=== PATIENT | female | born 1945 | race Caucasian/White ===

== ENCOUNTER 2020-08-21 14:39 | Outpatient (CLI) | payer MEDICARE, SELFPAY ==
--- NOTE | ~2020-08-21 | MM_ITS ---
EXAMINATION: MM screening ava BI w haylie HISTORY: Screening mammogram TECHNIQUE: Craniocaudal and mediolateral oblique 3-D tomosynthesis images were obtained and synthetic 2-D images were generated. CAD analysis was submitted and interpreted. COMPARISON: 08/08/2019, 08/02/2018, 07/31/2017 bilateral digital screening mammogram examinations BREAST PARENCHYMAL COMPOSITION: There are scattered areas of fibroglandular density. FINDINGS: Stable mild fibroglandular asymmetry. There is no evidence of suspicious mass, calcificatio n, or architectural distortion to suggest malignancy in either breast. There has been no suspicious i nterval change. IMPRESSION: 1. No mammographic evidence of malignancy. 2. Recommend routine screening mammography in one year. BI-RADS Category 2: Benign finding(s). Reviewed, dictated and finalized at location A. 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
== END 2020-08-21 14:40 | disposition home or self-care (01) ==
LOC: ANHIMG 14:42
PROVIDERS: PCP Family Medicine; Visit Provider Family Medicine
DX: Z12.31 Encounter for screening mammogram for malignant neoplasm of breast (principal)
CPT/HCPCS: 77063; 77067

== ENCOUNTER → 2021-02-04 12:29 | Outpatient (CLI) | payer MEDICARE, SELFPAY ==
--- NOTE | ~2021-02-04 | MR_ITS ---
EXAMINATION: MR lumbar spine wo con EXAM DATE: 02/04/2021 13:38 INDICATION: M47.816 - Spondylosis without myelopathy or radiculopathy. Low back pain and right leg pa in. TECHNIQUE: Multi-sequential, multiplanar MR images of the lumbar spine were obtained without contrast . Sagittal T1, T2, T2 fat saturation images. Axial T2 weighted images. Correlation is made to lumba r x-ray 04/09/2018. FINDINGS: Incidental approximately 2.3 cm left adrenal mass. No prior CT scans for comparison. There are mild acute or subacute compression fractures of L5 and S1 (edema present). There is a 2 mm alessia listhesis L5 on S1, without definite pars defects identified. Moderate to severe disc disease at this level, moderate at the 2 levels above. The conus medullaris terminates at the L1/2 level and has nor mal signal intensity and morphology. Level by level evaluation: T12-L1: Disc does not extend beyond the endplate margin. Facet arthropathy: None. Neural foraminal stenosis: No stenosis. Central canal stenosis: No stenosis. L1-L2: Disc does not extend beyond the endplate margin. Facet arthropathy: Mild. Neural foraminal stenosis: No stenosis. Central canal stenosis: No stenosis. L2-L3: There is a mild diffuse disc bulge. Facet arthropathy: Mild. Neural foraminal stenosis: No stenosis. Central canal stenosis: No stenosis. L3-L4: There is a mild to moderate diffuse disc bulge. Facet arthropathy: Mild to moderate. Neural foraminal stenosis: Mild bilateral. Central canal stenosis: Mild. L4-L5: There is a mild to moderate diffuse disc bulge. Facet arthropathy: Moderate. Neural foraminal stenosis: Mild to moderate right, mild left. Central canal stenosis: Mild. L5-S1: There is a moderate diffuse disc bulge. Facet arthropathy: Severe. Neural foraminal stenosis: Moderate to severe left, moderate right. Central canal stenosis: Mild to moderate. IMPRESSION: 1. L5 and S1 mild acute or subacute compression fractures. 2. Grade 2 anterolisthesis L5 on S1 with moderate to severe left, moderate right neural foraminal st enosis. 3. Less spondylosis other levels. 4. Left adrenal mass statistically most likely adenoma. Recommend noncontrast CT abdomen, might be e nough to determine benign histology. Reviewed, dictated and finalized at location A. IMPRESSION: 1. L5 and S1 mild acute or subacute compression fractures. 2. Grade 2 anterolisthesis L5 on S1 with moderate to severe left, moderate rig ht neural foraminal stenosis. 3. Less spondylosis other levels. 4. Left adrenal mass statistically most likely adenoma. Recommend noncontrast CT abdomen, might be enough to determine benign histology.
== END ==
PROVIDERS: PCP Family Medicine; Visit Provider Family Medicine
DX: M47.817 Spondylosis without myelopathy or radiculopathy, lumbosacral region (principal); M48.07 Spinal stenosis, lumbosacral region
CPT/HCPCS: 72148

== ENCOUNTER 2021-10-27 14:03 | Outpatient (CLI) | payer MEDICARE, SELFPAY ==
--- NOTE | ~2021-10-27 | MM_ITS ---
EXAMINATION: MM screening [facility] BI w haylie HISTORY: Screening mammogram, family history of breast cancer in her mother and sister. TECHNIQUE: Craniocaudal and mediolateral oblique 3-D tomosynthesis images were obtained and synthetic 2-D images were generated. CAD analysis was submitted and interpreted. COMPARISON: 08/21/2020, 08/08/2019, 08/02/2018 BREAST PARENCHYMAL COMPOSITION: There are scattered areas of fibroglandular density. FINDINGS: Focal asymmetry in the subareolar left breast is stable, consistent with a benign finding. There is no evidence of suspicious mass, calcification, or architectural distortion to suggest malign keon in either breast. There has been no suspicious interval change. IMPRESSION: 1. No mammographic evidence of malignancy. 2. Recommend routine screening mammography in one year. BI-RADS Category 2: Benign finding(s). Reviewed, dictated and finalized at location A. 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
== END 2021-10-27 14:04 | disposition home or self-care (01) ==
LOC: ANHIMG 14:07
PROVIDERS: PCP Family Medicine; Visit Provider Obstetrics & Gynecology
DX: Z12.31 Encounter for screening mammogram for malignant neoplasm of breast (principal)
CPT/HCPCS: 77063; 77067

== ENCOUNTER 2022-02-23 08:10 | Outpatient (CLI) | payer MEDICARE, SELFPAY ==
--- NOTE | ~2022-02-23 | DEXA_ITS ---
Bone Density Report Name: SPENCER ELLIOTT Age: 76 Sex: Female Ethnicity: White Date of : 1945 Indication: postmenopausal; screening for osteoporosis; height loss; prior fracture; cancer; hysterectomy; Referring Provider: WAYNE TINAJERO Study: Bone densitometry was performed. Exam Date: February 23, 2022 Accession number: [id number] Bone Density: Region BMD T-score Z-score Classification AP Spine(L1, L2, L3) 0.947 -0.6 1.8 Normal Femoral Neck (Left) 0.677 -1.5 0.6 Osteopenia Total Hip (Left) 0.901 -0.3 1.6 Normal Femoral Neck (Right) 0.701 -1.3 0.9 Osteopenia Total Hip (Right) 0.910 -0.3 1.7 Normal Total Hip Mean 0.905 -0.3 1.7 Normal World Health Organization criteria for BMD impression classify patients as: Normal (T-score at or above -1.0), Osteopenia (T-score between -1.0 and -2.5), or Osteoporosis (T-score at or below -2.5). 10-year Fracture Risk(1): Major Osteoporotic Fracture 18% Hip Fracture 3.4% Reported Risk Factors: [place] (), Neck BMD=0.677, BMI=33.1, previous fracture (1) FRAX(R) Version 3.08. Fracture probability calculated for an untreated patient. Fracture probability may be lower if the patient has received treatment. Clinical Information Provided by Patient: Has had a low trauma fracture Has used the following medications: Vitamin D, Calcium Has the following medical conditions: Cancer, Hysterectomy Patient maximum height was 64 Menopause Age: 44 No regular weight bearing exercise Does not regularly consume dairy products Drinks caffeinated beverages Onset of menses at age 13 Number of children 3 Impression: The patient has low bone mass, based on the Left Femoral Neck T-score. The patient has an estimated ten-year risk of hip fracture of 3.4% and an estimated ten-year risk of major fracture of 18%, based on the WHO FRAX algorithm. The patient has risk factors, including: previous fracture. Discussion: BONE DENSITY IS LOW AT ONE OR MORE SKELETAL SITES. THE PATIENT'S BMD AND CLINICAL RISK FACTORS CONTRIBUTE TO THIS PATIENT'S INCREASED RISK OF FRACTURE. This patient's lowest T-score is low at one or more skeletal sites. It meets the World Health Organization's (WHO) criteria for ?low bone mass? (T-score between -1.0 and -2.5). The patient's 10-year risk of hip fracture as calculated by FRAX exceeds the threshold where pharmacological therapy is recommended by the National Osteoporosis Foundation (NOF). However, all treatment decisions require clinical judgment and consideration of individual patient factors, including patient preferences, comorbidities, previous drug use, risk factors not captured in the FRAX model (e.g., frailty, falls, vitamin D deficiency, increased bone turnover, interval significant decline in bone density) and possible under
== END 2022-02-23 08:11 | disposition home or self-care (01) ==
LOC: ANHIMG 08:17
PROVIDERS: PCP Family Medicine; Visit Provider Family Medicine
DX: Z78.0 Asymptomatic menopausal state (principal); M85.852 Other specified disorders of bone density and structure, left thigh; M85.851 Other specified disorders of bone density and structure, right thigh
CPT/HCPCS: 77080

== ENCOUNTER 2022-03-07 02:01 | Day surgery (SDC) | payer MEDICARE, SELFPAY ==
[2022-02-17 12:20] VITALS: BMI 32.5
--- NOTE | 2022-03-04 14:42 | PM.HPGS ---
History of Present Illness History of Present Illness Consent: Risks, benefits, and alternatives have been discussed and questions answered. Patient agrees to proceed with procedure. Chief complaint: hx of colon polyps Narrative: Berna Vicente is a 76 year old female was referred for colon cancer screening. She had a polyp removed about 7 years ago. Review of Systems Review of Systems: All systems reviewed & are unremarkable except as noted in HPI and below PMFSH Past Medical History Medical History Appendicitis BP (high blood pressure) BPV (benign positional vertigo) Chronic insomnia Mixed hyperlipidemia Surgical History Surgical History Hx of hysterectomy S/P appendectomy Family History Family History Mother Family history of malignant neoplasm of breast in first degree relative Social History Social History Social History: Smoking packs per day: 0.25 Smoking cigarettes per day: 5.0 Years smoked: 15 Smoking pack-years: 3.75 Smoking status: Former smoker Tobacco type: cigarettes Second hand tobacco smoke exposure: No Alcohol intake: never Alcohol use details: occasionally Substance use: never Substance use type: does not use Living arrangements: with family Gender identity (if verbalized by the patient): Female Sexual Orientation (if Verbalized by the Patient): Straight or Heterosexual Spiritual care concerns: No Meds Home Medications and Allergies Home Medications Medication Instructions Recorded Confirmed Type amlodipine 5 mg tablet See Rx Instructions .Route 01/14/22 02/28/22 Rx .COMPLEX #90 tabs azelastine 137 mcg (0.1 %) nasal 1 spray intranasal Q12H #30 mL 02/04/22 02/28/22 Rx spray aerosol calcitonin (salmon) 200 1 spray intranasal (ALT) DAILY 02/11/22 02/17/22 Rx unit/actuation nasal spray #3.7 mL celecoxib 200 mg capsule (Celebrex) 200 mg PO BID #60 caps 02/11/22 02/17/22 Rx omeprazole 20 mg capsule,delayed 20 mg PO DAILY 02/11/22 02/17/22 History release gabapentin 100 mg capsule 100 mg PO QPM 02/17/22 02/28/22 History lisinopril 20 1 tablet PO DAILY #90 tabs 03/04/22 03/07/22 Rx mg-hydrochlorothiazide 12.5 mg tablet ezetimibe 10 mg tablet 10 mg PO DAILY #30 tabs 03/06/22 03/07/22 Rx Allergies Allergy/AdvReac Type Severity Reaction Status Date / Time shellfish derived Allergy Severe HIVES Verified 03/07/22 10:05 iodine Allergy Unknown Hives Verified 03/07/22 10:05 Exam Resp: Auscultation: clear to auscultation bilaterally Cardio: Rate: regular rate Rhythm: regular rhythm GI: GI Palp: Yes Soft to palpation and No Tenderness to palpation present (GI) Assessment and Plan Assessment and plan (1) Colon cancer screening: Code(s): Z12.11 - Encounter for screening for malignant neoplasm of colon Status: Acute Assessment and Plan: Colonoscopy with possible biopsy or polypectomy or cautery or injection of substances.
--- NOTE | 2022-03-07 07:28 | WPDANESEPPF ---
Anes - Initial Pre Proc Eval Procedure: Operation Date: 03/07/22 10:15 Proposed Procedures p Screening Colonoscopy - Jalen Doss MD Date/Time: 03/07/22 07:28 Surgeon: Jalen Doss MD Pre Op Diagnosis: hx of colon polyps Patient Data Age: 76 Gender: F Height: 1.63 m Weight: 86 kg Allergies Allergy/AdvReac Type Severity Reaction Status Date / Time shellfish derived Allergy Severe HIVES Verified 03/07/22 10:05 iodine Allergy Unknown Hives Verified 03/07/22 10:05 Home Medications Medication Instructions Recorded Confirmed Type amlodipine 5 mg tablet See Rx Instructions .Route 01/14/22 02/28/22 Rx .COMPLEX #90 tabs azelastine 137 mcg (0.1 %) nasal 1 spray intranasal Q12H #30 mL 02/04/22 02/28/22 Rx spray aerosol calcitonin (salmon) 200 1 spray intranasal (ALT) DAILY 02/11/22 02/17/22 Rx unit/actuation nasal spray #3.7 mL celecoxib 200 mg capsule (Celebrex) 200 mg PO BID #60 caps 02/11/22 02/17/22 Rx omeprazole 20 mg capsule,delayed 20 mg PO DAILY 02/11/22 02/17/22 History release gabapentin 100 mg capsule 100 mg PO QPM 02/17/22 02/28/22 History lisinopril 20 1 tablet PO DAILY #90 tabs 03/04/22 03/07/22 Rx mg-hydrochlorothiazide 12.5 mg tablet ezetimibe 10 mg tablet 10 mg PO DAILY #30 tabs 03/06/22 03/07/22 Rx Patient hx anesthesia problems: none Family hx anesthesia problems: none Results Review: All pre-operative results and documents have been reviewed as part of the pre-operative evaluation. [facility] Past Medical History Medical History Appendicitis BP (high blood pressure) BPV (benign positional vertigo) Chronic insomnia Mixed hyperlipidemia Surgical History Surgical History Hx of hysterectomy S/P appendectomy Family History Family History Mother Family history of malignant neoplasm of breast in first degree relative Social History Social History (Updated 02/11/22 @ 08:34 by Melissa Anderson) Social History: Smoking packs per day: 0.25 Smoking cigarettes per day: 5.0 Years smoked: 15 Smoking pack-years: 3.75 Smoking status: Former smoker Tobacco type: cigarettes Second hand tobacco smoke exposure: No Alcohol intake: never Alcohol use details: occasionally Substance use: never Substance use type: does not use Living arrangements: with family Gender identity (if verbalized by the patient): Female Sexual Orientation (if Verbalized by the Patient): Straight or Heterosexual Spiritual care concerns: No Anes - Eval Final PreProcedure Day of Procedure 03/07/22 07:28 Patient weight: obese Heart: regular rate and rhythm Lungs: clear to auscultation Airway: Mallampati scale class II Neurological: alert and oriented Last oral intake: >/= 8 hours ASA classification: III Emergent: no Anesthetic plan: proceed Anesthesia type and monitoring: general GIVS and standard monitoring Results Review: All pre-operative results and documents have been reviewed as part of the pre-operative evaluation. Informed Consent: The patient's anesthetic plan and its attendant risks and benefits were discussed with the patient/family/POA. Questions were solicited and answers provided to the satisfaction of the patient/family/POA.
[2022-03-07 10:07] VITALS: BP 171/88; PULSE 90; RESP 20; TEMP 36; O2SAT 100
[2022-03-07] MEDS: LACTATED RINGERS 1,000 ML 150 ML IV CONT (10:11)
[2022-03-07 11:10] VITALS: BP 106/53; PULSE 74; RESP 22; O2SAT 99
[2022-03-07 11:20] VITALS: BP 112/63; PULSE 71; RESP 20; O2SAT 99
[2022-03-07 11:30] VITALS: BP 132/77; PULSE 68; RESP 15; O2SAT 98
== END 2022-03-07 11:33 | disposition home or self-care (01) ==
PROVIDERS: PCP Family Medicine; Visit Provider Internal Medicine Gastroenterology
PROC: 0DJD8ZZ Inspection of Lower Intestinal Tract, Via Natural or Artificial Opening Endoscopic (ICD-10-PCS; CPT 45378; principal; 2022-03-07 10:15)
DX: Z12.11 Encounter for screening for malignant neoplasm of colon (principal); Z86.010 Personal history of colon polyps; K64.8 Other hemorrhoids; H81.10 Benign paroxysmal vertigo, unspecified ear; E78.2 Mixed hyperlipidemia; F51.04 Psychophysiologic insomnia; I10 Essential (primary) hypertension; Z87.891 Personal history of nicotine dependence; E66.9 Obesity, unspecified; Z68.31 Body mass index [BMI] 31.0-31.9, adult
CPT/HCPCS: G0105; J2704; J7120

== ENCOUNTER 2022-08-10 08:32 | Outpatient (CLI) | payer MEDICARE, SELFPAY | END 2022-08-10 08:33 | disposition home or self-care (01) | LOC: ANHAUDIO 08:32 | PROVIDERS: PCP Family Medicine; Visit Provider Otolaryngology | DX: H93.13 Tinnitus, bilateral (principal) | CPT/HCPCS: 92557; 92567 ==

== ENCOUNTER 2022-09-22 11:53 | Outpatient (CLI) | payer MEDICARE, SELFPAY ==
--- NOTE | ~2022-09-22 | MMUS_ITS ---
EXAMINATION: MM diagnostic ava LT w haylie, US axilla LT HISTORY: Palpable lump in the upper outer quadrant of the left breast TECHNIQUE: Craniocaudal, mediolateral, and mediolateral oblique 3-D tomosynthesis images of the left breast were performed and synthetic 2-D images were generated. CAD analysis was submitted and interpr eted. High resolution limited left breast ultrasound was performed. COMPARISON: 10/27/2021, 08/21/2020, 08/08/2019 BREAST PARENCHYMAL COMPOSITION: There are scattered areas of fibroglandular density. FINDINGS: MAMMOGRAPHIC FINDINGS: No suspicious mass, calcification, or architectural distortion are identified to suggest malignancy. There has been no suspicious interval change. No mammographic correlate is identified for the reporte d palpable abnormality of concern. ULTRASOUND: There is no evidence of focal abnormal solid or cystic mass in the vicinity of the reported palpable abnormality of concern. IMPRESSION: 1. No specific mammographic or sonographic correlate is identified for the reported palpable abnormal ity of concern. Further evaluation at this time should be based on clinical assessment. Continued fol low-up physical examination is recommended. 2. Recommend routine screening mammography in one year. BI-RADS Category 1: Negative Reviewed, dictated and finalized at location A. 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 No specific mammographic or sonographic correlate is identified for the repo rted palpable abnormality of concern. Further evaluation at this time should be based on clinical assessment. Continued follow-up physical examination is ange mmended. 2. Recommend routine screening mammography in one year. BI-RADS Category 1: Negative
== END 2022-09-22 11:54 | disposition home or self-care (01) ==
PROVIDERS: PCP Family Medicine; Visit Provider Nurse Practitioner Gerontology
DX: R22.32 Localized swelling, mass and lump, left upper limb (principal); Z80.3 Family history of malignant neoplasm of breast; N63.21 Unspecified lump in the left breast, upper outer quadrant
CPT/HCPCS: 76882; 77061; 77065; G0279

== ENCOUNTER 2022-12-14 14:50 | Outpatient (CLI) | payer MEDICARE, SELFPAY ==
--- NOTE | ~2022-12-14 | MM_ITS ---
EXAMINATION: MM screening [facility] BI w haylie HISTORY: Screening TECHNIQUE: Craniocaudal and mediolateral oblique 3-D tomosynthesis images were obtained and synthetic 2-D images were generated. CAD analysis was submitted and interpreted. COMPARISON: Comparison to multiple prior studies sequentially, with oldest reviewed study dated 07/19. BREAST PARENCHYMAL COMPOSITION: There are scattered areas of fibroglandular density. FINDINGS: There is no evidence of suspicious mass, calcification, or architectural distortion to sugg est malignancy in either breast. There has been no suspicious interval change. IMPRESSION: 1. No mammographic evidence of malignancy. 2. Recommend routine screening mammography in one year. BI-RADS Category 1: Negative Reviewed, dictated and finalized at location A.
== END 2022-12-14 14:51 | disposition home or self-care (01) ==
LOC: ANHIMG 14:53
PROVIDERS: PCP Family Medicine; Visit Provider Obstetrics & Gynecology
DX: Z12.31 Encounter for screening mammogram for malignant neoplasm of breast (principal)
CPT/HCPCS: 77063; 77067

== ENCOUNTER 2023-01-18 13:25 | Outpatient (CLI) | payer MEDICARE, SELFPAY ==
--- NOTE | ~2023-01-18 | CT_ITS ---
EXAMINATION: CT sinus wo con DATE: 01/18/2023 13:50 INDICATION: Chronic sinusitis. TECHNIQUE: Computed tomography (CT) of the paranasal sinuses was performed without intravenous contra st. Iterative reconstruction technique was employed. The dose-length product was 277.13 mGy-cm. COMPARISON: None FINDINGS: The frontal sinuses are clear. There is mild mucosal thickening in the ethmoid sinuses. The sphenoid and maxillary sinuses are clear. There is mild mucosal thickening in right maxillary sinus. There is rightward deviation of the nasal septum. There is bo bullosa involving left middle turb inate. There are bilateral Jd cells. Right ostiomeatal unit is occluded at the hiatus semilunaris . Left ostiomeatal unit is patent. IMPRESSION: 1. Mild mucosal thickening in the paranasal sinuses with occlusion of right ostiomeatal unit. 2. Rightward deviation of the nasal septum. Reviewed, dictated and finalized at location A. IMPRESSION: 1. Mild mucosal thickening in the paranasal sinuses with occlusion of right ost iomeatal unit. 2. Rightward deviation of the nasal septum.
== END 2023-01-18 13:26 | disposition home or self-care (01) ==
PROVIDERS: PCP Family Medicine; Visit Provider Otolaryngology
DX: J32.9 Chronic sinusitis, unspecified (principal); J34.2 Deviated nasal septum
CPT/HCPCS: 70486

== ENCOUNTER 2023-06-01 10:51 | Emergency (ER) | payer MEDICARE, SELFPAY ==
[2023-06-01] VITALS (7 sets, daily range): BP systolic 133–165; BP diastolic 63–74; PULSE 70–93; RESP 11–18; TEMP 36.9; O2SAT 98–100
--- NOTE | ~2023-06-01 | XR_ITS ---
EXAMINATION: XR chest 1V portable 06/01/2023 11:18 INDICATION: Chest pain PROCEDURE: AP portable chest COMPARISON: No prior studies for comparison. FINDINGS: The lungs are clear. The cardiomediastinal silhouette is within normal limits. There are no pleural effusions. There is no pneumothorax suspected. IMPRESSION: 1: NO ACUTE CARDIOPULMONARY DISEASE. Reviewed, dictated and finalized at location L.
--- NOTE | 2023-06-01 10:56 | ECG_ITS ---
Measurements Intervals [place] Rate: 79 P: -1 [place]: 152 QRS: -11 QRSD: 84 T: 20 QT: 378 QTc: 434 Interpretive Statements SINUS RHYTHM DELAYED PRECORDIAL R/S TRANSITION VOLTAGE CRITERIA FOR LV BORDERLINE ECG NO PREVIOUS ECG AVAILABLE FOR COMPARISON Electronically Signed On 06-01-2023 11:49:59 CDT by Harsha Wong D.O.
[2023-06-01 11:42] LABS: Basophils Absolute Auto 0.1 K/mm3 (0.0-0.1); Basophils Percent Auto 0.7 % (0.2-1.2); Eosinophils Absolute Auto 0.2 K/mm3 (0-0.3); Eosinophils Percent Auto 3.1 % (0-4.4); Hemoglobin 13.4 g/dL (12.0-15.0); Immature Granulocyte Absolute 0.02 K/mm3 (0.00-0.031); Immature Granulocyte Percent A 0.3 % (0-0.5); Lymphocytes Absolute Auto 1.72 K/mm3 (0.9-3.2); Lymphocytes Percent Auto 24.3 % (18.3-44.2); Mean Corpuscular HGB Conc 31.9 g/dl (32-36); Mean Corpuscular Hemoglobin 32.4 pg (26-34); Mean Corpuscular Volume 101.7 fl (80-100); Monocytes Absolute Auto 0.6 K/mm3 (0.1-0.6); Monocytes Percent Auto 8.2 % (2.6-8.5); Neutrophils Absolute Auto 4.5 K/mm3 (1.3-6.7); Neutrophils Percent Auto 63.4 % (45.5-73.1); Platelet Count Result 300 k/mm3 (150-375); Red Blood Count 4.13 M/mm3 (4.2-5.4); Red Cell Distribution Width 12.6 % (11.5-14.5); White Blood Count 7.1 K/mm3 (4.5-10.0)
[2023-06-01 11:48] LABS: Alanine Aminotransferase 24 U/L (6-35); Alkaline Phosphatase 59 U/L (38-126); Anion Gap 11 mmol/L (8-16); Aspartate Amino Transferase 30 U/L (14-36); Bilirubin,Total 0.5 mg/dL (0.2-1.3); Blood Urea Nitrogen 20 mg/dL (7-17); Carbon Dioxide 27 mmol/L (22-30); Chloride 102 mmol/L (98-107); Estimated CRCL calculation 48 ml/min; Estimated Glomerular Filt Rate > 60; Glucose 129 mg/dL (65-110); Lipase 107 U/L (23-300); Potassium 3.8 mmol/L (3.4-5.0); Sodium 140 mmol/L (137-145)
[2023-06-01 11:49] LABS: INR 0.9; Partial Thromboplastin Time 29.5 SECONDS (22.3-36.8); Prothrombin Time 12.4 Seconds (11.1-14.7)
[2023-06-01 12:00] LABS: Troponin I < 0.012 ng/mL (0.000-0.034)
--- NOTE | 2023-06-01 12:24 | ED.GENADULT ---
HPI - General Adult General Chief complaint: Chest Pain Stated complaint: right side chest pain Time Seen by Provider: 06/01/23 11:47 History of Present Illness HPI narrative: Pt presents with right sided CP since last night. Pt says the pain has been constant. Related Data Home Medications Medication Instructions Recorded Confirmed omeprazole 20 mg capsule,delayed 20 mg PO DAILY 02/11/22 05/09/23 release Allergies Allergy/AdvReac Type Severity Reaction Status Date / Time shellfish derived Allergy Severe HIVES Verified 05/09/23 13:37 iodine Allergy Unknown Hives Verified 05/09/23 13:37 [facility] Past Medical History Medical History Appendicitis BP (high blood pressure) BPV (benign positional vertigo) Chronic insomnia Mixed hyperlipidemia Surgical History Surgical History Hx of hysterectomy S/P appendectomy Family History Family History Mother Family history of malignant neoplasm of breast in first degree relative Social History Social History Social History: Smoking packs per day: 0.25 Smoking cigarettes per day: 5.0 Years smoked: 15 Smoking pack-years: 3.75 Smoking status: Former smoker Tobacco type: cigarettes Second hand tobacco smoke exposure: No Alcohol intake: never Alcohol use details: occasionally Substance use: never Substance use type: does not use Living arrangements: with family Occupation/Education: retired Gender identity (if verbalized by the patient): Female Sexual Orientation (if Verbalized by the Patient): Straight or Heterosexual Spiritual care concerns: No Course Vital Signs Vital signs: Vital Signs Temperature 98.4 F 06/01/23 11:00 Pulse Rate 93 06/01/23 11:00 Respiratory Rate 16 06/01/23 11:00 Blood Pressure 165/69 H 06/01/23 11:00 Pulse Oximetry 100 06/01/23 11:00 Oxygen Delivery Room Air 06/01/23 11:00 Temperature 98.4 F 06/01/23 11:00 Pulse Rate 70 06/01/23 13:00 Respiratory Rate 16 06/01/23 13:00 Blood Pressure 133/63 06/01/23 13:00 Pulse Oximetry 100 06/01/23 13:00 Oxygen Delivery Room Air 06/01/23 11:00 Medical Decision Making Vital Signs Vital Signs: Vital Signs Temperature 98.4 F 06/01/23 11:00 Pulse Rate 93 06/01/23 11:00 Respiratory Rate 16 06/01/23 11:00 Blood Pressure 165/69 H 06/01/23 11:00 Pulse Oximetry 100 06/01/23 11:00 Oxygen Delivery Room Air 06/01/23 11:00 Temperature 98.4 F 06/01/23 11:00 Pulse Rate 70 06/01/23 13:00 Respiratory Rate 16 06/01/23 13:00 Blood Pressure 133/63 06/01/23 13:00 Pulse Oximetry 100 06/01/23 13:00 Oxygen Delivery Room Air 06/01/23 11:00 Lab Data 06/01/23 11:27 06/01/23 11:27 Labs: Lab Results 06/01/23 Range/Units 11:27 WBC 7.1 (4.5-10.0) K/mm3 RBC 4.13 L (4.2-5.4) M/mm3 Hgb 13.4 (12.0-15.0) g/dL Hct 42.0 (37.0-47.0) % MCV 101.7 H (80-100) fl MCH 32.4 (26-34) pg MCHC 31.9 L (32-36) g/dl RDW 12.6 (11.5-14.5) % Plt Count 300 (150-375) k/mm3 MPV 10.0 (7.4-10.4) fl Immature Gran % (Auto) 0.3 (0-0.5) % Neut % (Auto) 63.4 (45.5-73.1) % Lymph % (Auto) 24.3 (18.3-44.2) % [place] % (Auto) 8.2 (2.6-8.5) % Eos % (Auto) 3.1 (0-4.4) % Baso % (Auto) 0.7 (0.2-1.2) % Lymph # (Auto) 1.72 (0.9-3.2) K/mm3 [place] # (Auto) 0.6 (0.1-0.6) K/mm3 Eos # (Auto) 0.2 (0-0.3) K/mm3 Baso # (Auto) 0.1 (0.0-0.1) K/mm3 Abs Immat Gran (auto) 0.02 (0.00-0.031) K/mm3 Absolute Neuts (auto) 4.5 (1.3-6.7) K/mm3 Absolute Nucleated RBC 0.0 (0.0-0.012) K/mm3 Nucleated RBC % 0.0 (0.0-0.2) % PT 12.4 (11.1-14.7) Seconds INR 0.9 APTT 29.5 (22.3-36.8) SECONDS Sodium 140 (137-145) mmo
== END 2023-06-01 13:01 | disposition home or self-care (01) ==
PROVIDERS: Emergency Provider Emergency Medicine; PCP Family Medicine
DX: R07.89 Other chest pain (principal); K21.9 Gastro-esophageal reflux disease without esophagitis; E78.2 Mixed hyperlipidemia; Z87.891 Personal history of nicotine dependence
CPT/HCPCS: 36415; 71045; 80053; 83690; 84484; 85025; 85610; 85730; 93005; 99284

== ENCOUNTER 2023-11-02 14:00 | Outpatient (CLI) | payer MEDICARE, SELFPAY ==
--- NOTE | ~2023-11-02 | XR_ITS ---
XR lumbar spine min 4V DATE: 11/02/2023 14:24 INDICATION: Right buttock, leg pain for 5 years. No injury. TECHNIQUE: AP, lateral, bilateral oblique views. Coned lateral lumbosacral view COMPARISON: 02/04/2021 MRI lumbar spine 04/09/2018 lumbar spine FINDINGS: Minimal lumbar dextroscoliosis. Grade 2 anterolisthesis and severe degenerative disc disease at L5-S1. Moderate to moderately severe degenerative disc disease at L3-4 and L4-5. Osteopenia. No fracture or bone destruction is evident. The lumbar and included lower thoracic pedicles are intac t. Normal sacroiliac joints. Abdominal aortic calcification. IMPRESSION: Grade 2 anterolisthesis of L5-S1 Multilevel degenerative disc disease, involving particularly L3-4, L4-5 and most severely L5-S1 Reviewed, dictated and finalized at location L. 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
== END 2023-11-02 14:01 | disposition home or self-care (01) ==
LOC: ANHIMG 14:04
PROVIDERS: PCP Family Medicine; Visit Provider Family Medicine
DX: M53.87 Other specified dorsopathies, lumbosacral region (principal); S32.050S Wedge compression fracture of fifth lumbar vertebra, sequela; X58.XXXS Exposure to other specified factors, sequela; M51.36 Other intervertebral disc degeneration, lumbar region; M51.37 Other intervertebral disc degeneration, lumbosacral region
CPT/HCPCS: 72110

== ENCOUNTER 2023-11-23 09:36 | Outpatient (CLI) | payer MEDICARE, SELFPAY ==
--- NOTE | ~2023-11-23 | MR_ITS ---
MRI of the lumbar spine Clinical History: Pain Technique: Axial T2-weighted images, and sagittal T1-weighted, T2-weighted, and T2 fat-sat images wer e acquired. COMPARISON: 02/04/2021 Findings: There is 11 mm anterolisthesis of L5 over S1. No definite pars intra-articular is defects e vident. No fracture evident. No suspicious bone marrow signal abnormality seen. At L1-L2, there is no disc bulge or herniation. There is mild facet arthropathy. No central canal robert nosis or definite neural foraminal narrowing. At L2-L3, there is minimal disc bulge and mild facet arthropathy. No central canal stenosis or neural foraminal narrowing. At L3-L4, there is moderate degenerative disc 9. There is mild disc bulge and advanced facet arthropa thy. No central canal stenosis. There is mild left neural foraminal narrowing. Right neural foramen p reserved. At L4-L5, there is moderate degenerative disc narrowing. There is diffuse disc bulge with a probable sequestered disc fragment/extrusion extending inferiorly the right paracentral region (sagittal image 10, axial image 26). No shaan spinal canal stenosis. There is moderate to severe right neural forami nal narrowing, and mild left neural foraminal narrowing. At L5-S1, there is severe degenerative disc narrowing. There is disc bulge/uncovering with severe fac et arthropathy. No shaan central canal stenosis. There is severe bilateral neural foraminal compromis e. Paravertebral soft tissues are unremarkable. Impression: 11 mm anterolisthesis of L4 over L5. Probable sequestered disc fragment/extrusion in the right paracentral region inferiorly at the L4-L5 level. Additional multilevel significant neural foraminal narrowing, as detailed above. Reviewed, dictated and finalized at [facility] M. R MAKER Impression: 11 mm anterolisthesis of L4 over L5. Probable sequestered disc fragment/extrusion in the right paracentral region in feriorly at the L4-L5 level. Additional multilevel significant neural foraminal narrowing, as detailed abov e.
== END 2023-11-23 09:37 ==
PROVIDERS: PCP Neurological Surgery; Visit Provider Family Medicine
DX: M54.50 Low back pain, unspecified (principal)
CPT/HCPCS: 72148

== ENCOUNTER 2023-12-18 09:47 | Outpatient (CLI) | payer MEDICARE, SELFPAY ==
--- NOTE | ~2023-12-18 | MM_ITS ---
EXAMINATION: MM screening ava BI w haylie HISTORY: Screening TECHNIQUE: Craniocaudal and mediolateral oblique 3-D tomosynthesis images were obtained and synthetic 2-D images were generated. CAD analysis was submitted and interpreted. COMPARISON: Comparison to multiple prior studies sequentially, with oldest reviewed study dated 07/19. BREAST PARENCHYMAL COMPOSITION: Not dense: There are scattered areas of fibroglandular density. FINDINGS: There is no evidence of suspicious mass, calcification, or architectural distortion to sugg est malignancy in either breast. There has been no suspicious interval change. IMPRESSION: 1. No mammographic evidence of malignancy. 2. Recommend routine screening mammography in one year. BI-RADS Category 1: Negative Reviewed, dictated and finalized at location A.
== END 2023-12-18 09:48 | disposition home or self-care (01) ==
LOC: ANHIMG 09:50
PROVIDERS: PCP Family Medicine; Visit Provider Family Medicine
DX: Z12.31 Encounter for screening mammogram for malignant neoplasm of breast (principal)
CPT/HCPCS: 77063; 77067

== ENCOUNTER 2024-01-09 10:00 | Outpatient (RCR) | payer MEDICARE, SELFPAY ==
--- NOTE | 2023-11-09 08:29 | PTOPEVAL1 ---
Assessment and note entered by Darrel Cabrera Evaluation Information Assessment Status Evaluation Diagnosis compression fx L5, low back pain Onset 07/09/24 Subjective Information Pt. reports that she developed pain down the entire right leg into her foot about 4 months ago. She reports that she does take Tylenol daily to address her pain. Pt. reports she has reduced her activity level over the recent months and has slightly improved. She reports that her right leg pain is constant. She reports that she cannot sleep in bed and has to sleep in a recliner due to her pain. She states that standing for any significant duration also increases her pain. She reports that she tries to avoid activities that increase her leg pain, but is able to complete most household activities, just much slower than in the past. She reports she can only stand for about 10-20 minutes before having to sit down. She reports that she has changed the way she walks and notices that she takes smaller strides with walking. She reports that her goal for therapy is to be able to decrease her right leg pain. Reported Pain Level Pain Score 2: Self Report Assessment PT Clinical Summary Pt. is a 78 year old female who enters the clinic with low back pain with right lower extremity radiculopathy. She presents with l.e. weakness, core weakness, impaired postural awareness and pain. Continued skilled PT is indicated in order to improve these areas to allow for improved comfort with IADL performance. Plan of Care Interventions Electrical Stimulation,Hot Pack/Cold Pack,Manual Therapy,Neuro Re-education,Patient/Caregiver Educati,Therapeutic Activities,Therapeutic Exercise PT Services Indicated Yes Treatment Frequency and 2x/week x 10 visits Duration These treatments will address the objective and functional deficits as defined above. The patient will be advanced safely and appropriately in order for the patient to progress towards his/her prior level of function. Additional exercises will be introduced and as well as a comprehensive home exercise program upon discharge, if needed, ?to ensure carryover of functional gains achieved in the clinic. This treatment plan has been reviewed and agreement upon by the patient.
--- NOTE | 2023-11-09 08:29 | OPREHPOC ---
Outpatient Therapy Plan of Care This is a Multidisciplinary Plan of Care that may contain components documented by all disciplines (PT, OT, and ST.) PT Problem 1 PT Problem #1 Knowledge Deficit PT Goal 1 Goal Independent with a HEP addressing trunk mobility and core stability. Target Visit 2 PT Problem 2 PT Problem #2 Pain PT Goal 1 Goal Reduce pain to 5/10 at worst with prolonged standing activities Target Visit 10 PT Problem 3 PT Problem #3 Impaired Functional Mobil PT Goal 1 Goal Pt. will present with less than 20% limitation with the Modified Oswestry indicating overall improvement in function. Target Visit 10 PT Problem 4 PT Problem #4 Impaired Flexibility PT Goal 1 Goal Present at 5 degrees from full knee extension on both right and left with the 90/90 test. Target Visit 10
--- NOTE | 2023-12-13 09:51 | PTOPPROG ---
Assessment and note entered by Darrel Cabrera Evaluation Information Assessment Status Progress Diagnosis compression fx L5, low back pain Onset 07/09/24 Subjective Information Pt. reports that her pain has been reduced since attempting light lumbar traction last Rx. she reports that following last treatment, she feels better than she has in a long time. She notices that the leg pain is much less intense. She states that pain remained intense prior to last treatment. She reports that she would like to continue treatment at this time given her recent reduction in pain. Assessment PT Clinical Summary Pt. has attended a total of 9 treatment sessions. Progress was minimal until initiating light traction at last Rx. She has reduction in radicular symptoms since last treatment. Recommend continued skilled PT for a brief duration to continue to trial use of light lumbar traction to continue to reduce pain and to advance pt. to higher level core stabilization exercises. Plan of Care Interventions Electrical Stimulation,Hot Pack/Cold Pack,Manual Therapy,Neuro Re-education,Patient/Caregiver Education,Therapeutic Activities,Therapeutic Exercise, mechanical traction PT Services Indicated Yes Treatment Frequency and 2x/week x 6 visits Duration These treatments will address the objective and functional deficits as defined above. The patient will be advanced safely and appropriately in order for the patient to progress towards his/her prior level of function. Additional exercises will be introduced and as well as a comprehensive home exercise program upon discharge, if needed, ?to ensure carryover of functional gains achieved in the clinic. This treatment plan has been reviewed and agreement upon by the patient.
--- NOTE | 2024-01-09 10:50 | PTOPDC ---
Assessment and note entered by Chelsea Joyce, PT Discharge Information Assessment Status Discharge Diagnosis compression fx L5, low back pain Onset 07/09/24 Subjective Information activity is still limited-- not walking as much, cannot do cleaning as long, problems getting in/ out car-- tight getting legs into car (educated to move seat back when getting in legs); have an exercise ball now-- use for sitting to watch TV, on stomach to stretch back; really like the traction, it took away the leg pain temporarily; doing the exercises at home; Reported Pain Level Pain Score Self Report Additional Pain Score Comments pain range in the past week: 2-8/10, low back pain intermittent into R LE to foot; if move wrong, get sharp, stabbing pain and last few seconds only but can get the overall pain started more decrease pain: change positions, traction Assessment PT Clinical Summary Berna has received 15 PT sessions. Compared to the last progress report: pain rating from 1-7/10 to 2-8/10; continues to have radicular pain into R LE with reports of less intensity and time in her leg; self assessment Oswestry rating with 32% to 30% limitation in activity level; increase flexibility of R hamstring and no longer painful; no longer has pain with palpation over R sacral area; education completed for HEP, posture, body mechanics, balance of rest/activity to manage her pain. The goals were partially met. Discharge PT services. She is to continue with her HEP. Plan of Care PT Services Indicated No
== END 2024-01-09 12:23 | disposition home or self-care (01) ==
LOC: ANHPT 10:00
PROVIDERS: PCP Family Medicine; Visit Provider Physician Assistant
DX: M54.50 Low back pain, unspecified (principal); M53.87 Other specified dorsopathies, lumbosacral region; S32.050D Wedge compression fracture of fifth lumbar vertebra, subsequent encounter for fracture with routine healing
CPT/HCPCS: 97012; 97014; 97110; 97140; 97161; 97530; 97550; G0283

== ENCOUNTER 2024-02-21 09:07 | Outpatient (CLI) | payer MEDICARE, SELFPAY ==
--- NOTE | ~2024-02-21 | XR_ITS ---
EXAMINATION: XR lumbar spine min 4V DATE: 02/21/2024 09:28 INDICATION: Right leg pain and numbness. TECHNIQUE: 5 views of lumbar spine including standing views and flexion and extension views were obta ined. COMPARISON: Lumbar spine radiographs 11/02/2023, MRI 11/23/2023 FINDINGS: There is 8 degrees dextrocurvature of lumbar spine. There is 10 mm anterolisthesis of L5 on S1. Vertebral body heights are normal. There is severely decreased disc height from L3 through L4 th rough L5-S1. The spine is hypomobile with flexion and extension. There is multilevel severe facet lizabeth nt osteoarthritis. IMPRESSION: 1. Severe lumbar spondylosis. Reviewed, dictated and finalized at location A.
== END 2024-02-21 09:08 | disposition home or self-care (01) ==
LOC: ANHIMG 09:09
PROVIDERS: PCP Family Medicine; Visit Provider Neurological Surgery
DX: M43.16 Spondylolisthesis, lumbar region (principal)
CPT/HCPCS: 72110

== ENCOUNTER 2024-12-18 07:53 | Outpatient (CLI) | payer MEDICARE, SELFPAY ==
--- NOTE | ~2024-12-18 | MM_ITS ---
EXAMINATION: MM screening ava BI w haylie HISTORY: Screening TECHNIQUE: Craniocaudal and mediolateral oblique 3-D tomosynthesis images were obtained and synthetic 2-D images were generated. CAD analysis was submitted and interpreted. COMPARISON: Comparison to multiple prior studies sequentially, with oldest reviewed study dated 07/20. BREAST PARENCHYMAL COMPOSITION: Not dense: There are scattered areas of fibroglandular density. FINDINGS: There is no evidence of suspicious mass, calcification, or architectural distortion to sugg est malignancy in either breast. There has been no suspicious interval change. IMPRESSION: 1. No mammographic evidence of malignancy. 2. Recommend routine screening mammography in one year. BI-RADS Category 1: Negative Reviewed, dictated and finalized at location A.
--- OUTSIDE RECORDS SUMMARY | 2024-12-18 08:02 | XMS_ITS | Encounter Summary ---
Author Organization [facility] Address [address] [place] [address] Care Team Providers Care Ward Aide Name Role Phone Breonna Alejandra MD Primary Care Provider + Encounter Details Date Type Department Care Team (Late st Contact Info) Description 08/08/2023 Lab Requisition [facility] - DermPath Lab [address] [facility] [place] [address] Negra Bradshaw MD [address] [facility] [address] [place] [address] Social History Tobacco Use Types Packs/Day Years Used Date Smoking Tobacco: Former Sex and Gender Information Value Date Recorded Sex Assigned at Not on file Gender Identity Not on file Sexual Orientation Not on file documented as of this encounter Plan of Treatment Not on file documented as of this encounter Procedures Procedure Name Priority Date/Time Associated Diagnosis Comments DERMATOPATHOLOGY Routine 08/08/2023 2:48 PM [facility] documented in this encounter Results * DERMATOPATHOLOGY (08/08/2023 2:48 PM [facility]) Case Report Dermatopathology Report Case: [id number] Authorizing Provider: Negra Bradshaw MD Collected: 08/08/2023 02:48 PM Ordering Location: [facility] DermPath Lab Received: 2023 11:59 AM Pathologist: Marguerite Hercules MD Specimen: Skin, right medial cheek 11:19 AM [facility] DERMATOPATHOLOGY LABORATORY Final Diagnosis Specimen A. SKIN, right medial cheek: BASAL CELL CARCINOMA, NODULAR TYPE (C44.319) (see microscopic description) 3 11:19 AM [facility] DERMATOPATHOLOGY LABORATORY Clinical History BCC ,Growing 3 11:19 AM [facility] DERMATOPATHOLOGY LABORATORY Gross Description Specimen A: Received is one formalin filled container labeled with the patient's name and designated right medial cheek. The specimen consists of a shave biopsy measuring 3x2x1 mm. Jar 0. 11:19 AM [facility] DERMATOPATHOLOGY LABORATORY Microscopic Description Specimen A. SKIN, right medial cheek: Within the dermis there are aggregates of basaloid cells with a high nuclear to cytoplasmic ratio and peripheral palisading. Additional deeper sections were obtained and reviewed. 11:19 AM [facility] DERMATOPATHOLOGY LABORATORY Disclaimer An external and internal positive and negative controls are appropriate for the histochemical, immunohistochemical and immunofluorescence stain(s) in this case (if any), except where stated explicitly. The performance characteristics of the stain(s) cited in this report were developed and its performance characteristic determined by the Dermatopathology Laboratory at [facility], directed by Dr. Kentrell Licea. These tests need not be, and therefore are not, approved by the [place] Food and Drug Administration. The tests are used for clinical purposes. Billing Codes Specimen Charges Stain Charges 23786 1 11:19 AM [facility] DERMATOPATHOLOGY LABORATORY Embedded Images 11:19 AM [facility] DERMATOPATHOLOGY LABORATORY Pathology/Cytolo gy TISSUE SPECIMEN FROM SKIN / Unknown 08/08/2023 2:48 PM [facility] 2023 11:59 AM [facility] Negra Bradshaw MD LAB - PATHOLOGY/CYTO LOGY ORDERABLES DERMATOPATHOLOGY LABORATORY [facility] - Department of Dermatology [address], [address] [phone] documented in this encounter Visit Diagnoses Not on filedocumented in this encounter Care Teams Ward Aide Relationship Specialty Start Date End Date Breonna Alejandra MD [address] [place] [address] PCP - General Family Medicine 09/02/16 documented as of this encounter
--- OUTSIDE RECORDS SUMMARY | 2024-12-18 08:02 | XMS_ITS | Continuity of Care Document ---
Author Organization [facility] Address [address] [place] [address] Phone Care Team Providers Care Field Secretary Name Role Phone Carver OD, Sukumar Unavailable Unavailable Procedures Procedure Date Eye Exam & Treatment Refraction Eye Exam & Treatment Refraction Eye Exam Established Pt Eye Exam Established Pt Eye Exam & Treatment Eye Exam Established Pt Eye Exam Established Pt Office/outpatient Visit, Est Advance Directives Directive Yes / No Effective Date File Name No Information Encounters Encounter Description Practice Location Reason(s) For Visit Diagnoses Date Provider Providers Copied on Encounter [facility], [address] [place] [address] [address], [place], [place], [id number], [place] tel:[phone] [facility] No Information Sep-3 0-201 0 Carver OD Sukumar. [address] , [address], [place], [place], [facility], [place]. tel:[phone] [facility], [address], [place], [place], [id number], [place] tel:[phone] [facility] No Information Sep- 7-200 9 Carver OD Sukumar. [address] , [address], [place], [place], [facility], [place]. tel:[phone] [facility], [address], [place], [place], [id number], [place] tel:[phone] [facility] No Information January-1 4-200 9 Carver OD Sukumar. [address], [place], [place], [facility], [place]. tel:[phone] [facility], [address], [place], [place], [id number], [place] tel:[phone] [facility] No Information Dec-0 3-200 8 Krishnasamy Alvaro. [address], [place], [facility], [place]. tel:[phone] [facility], [address] [place] [address] [address], [place], [place], [id number], [place] tel:[phone] [facility] No Information Apr-2 1-200 8 Carver OD Sukumar. [address], [place], [facility], [place]. tel:[phone] [facility], [address] [place] [address] [address], [place], [place], [id number], [place] tel:[phone] [facility] No Information 2 1-200 7 Carver OD Sukumar. [address], [place], [facility], [place]. tel:[phone] [facility], [address] [place] [address] [address], [place], [place], [id number], [place] tel:[phone] [facility] No Information 7-200 7 Carver OD Sukumar. [address], [place], [facility], [place]. tel:[phone] Office/outpat ient Visit, Est [facility], [address], [place], [place], [id number], [place] tel:[phone] [facility] No Information 5-200 7 Carver OD Sukumar. [address], [place], [address], [place]. tel:[phone] Family History Family Member Type Diagnosis Age At Onset No Information Payers Payer name Insurance type Covered democrat ID Lee Ann liao(s) [employer] Plan [id number] Social History Type Description Quantity Date Captured Comments Sex Female Smoking Status No Information Chief Complaint And Reason For Visit No Information Reason For Referral Reason For Referral No Information History Of Present Illness Encounter Date Complaint History Of Prese nt Illness No Information Functional Status Date Functional Assessmen t No Information Instructions Date Instruction Additional Infor mation No Information Assessments Type Assessment Date No Information Patient Care Teams Name Effective Dates (start - stop) Status Members No Information
--- OUTSIDE RECORDS SUMMARY | 2024-12-18 08:02 | XMS_ITS | Encounter Summary ---
Author Organization [facility] Address [address] [place] [address] Care Team Providers Care Stock Replenisher Name Role Phone Breonna Alejandra MD Primary Care Provider + Encounter Details Date Type Department Care Team (Late st Contact Info) Description 10/15/2024 Lab Requisition [facility] - DermPath Lab [address] [facility], [place] [address] Marleen Mcgovern DO [address] [facility] [address] [place] [address] Social History Tobacco Use Types Packs/Day Years Used Date Smoking Tobacco: Former Sex and Gender Information Value Date Recorded Sex Assigned at Not on file Gender Identity Not on file Sexual Orientation Not on file documented as of this encounter Plan of Treatment Not on file documented as of this encounter Procedures Procedure Name Priority Date/Time Associated Diagnosis Comments DERMATOPATHOLOGY Routine 10/15/2024 10:3 8 AM [facility] documented in this encounter Results * DERMATOPATHOLOGY (10/15/2024 10:38 AM [facility]) Case Report Dermatopathology Report Case: [id number] Authorizing Provider: Marleen Mcgovern DO Collected: 10/15/2024 10:38 AM Ordering Location: [facility] - Received: 10/15/2024 02:47 PM DermPath Lab Pathologist: Ant Licea MD Specimen: Skin, right thigh 12:13 PM [facility] DERMATOPATH[facility]Y LABORATORY Final Diagnosis Specimen A. SKIN, right thigh: HYPERPLASTIC (HYPERTROPHIC) ACTINIC KERATOSIS (L57.0) 12:13 PM [facility] DERMATOPATHOLOGY LABORATORY Clinical History R/O NMSC 12:13 PM [facility] DERMATOPATHOLOGY LABORATORY Gross Description Specimen A: Received is one formalin filled container labeled with the patient's name and designated right thigh. The specimen consists of a shave biopsy measuring 7x5x1 mm. Jar 0. 12:13 PM [facility] DERMATOPATHOLOGY LABORATORY Microscopic Description Specimen A. SKIN, right thigh: There is hyperkeratosis alternating with parakeratosis. There is epidermal hyperplasia with disorderly maturation of keratinocytes with nuclear pleomorphism confined to the lower half of the epidermis. 12:13 PM [facility] DERMATOPATHOLOGY LABORATORY Disclaimer An external and internal positive and negative controls are appropriate for the histochemical, immunohistochemical and immunofluorescence stain(s) in this case (if any), except where stated explicitly. The performance characteristics of the stain(s) cited in this report were developed and its performance characteristic determined by the Dermatopathology Laboratory at [facility], directed by Dr. Kentrell Licea. These tests need not be, and therefore are not, approved by the [place] Food and Drug Administration. The tests are used for clinical purposes. Billing Codes Specimen Charges Stain Charges 84541 1 12:13 PM [facility] DERMATOPATHOLOGY LABORATORY Embedded Images 12:13 PM [facility] DERMATOPATHOLOGY LABORATORY Pathology/Cytolo gy TISSUE SPECIMEN FROM SKIN / Unknown 10/15/2024 10:38 AM [facility] 10/15/2024 2:47 PM [facility] Marleen Mcgovern DO LAB - PATHOLOGY/C YTOLOGY ORDERABLES DERMATOPATHOLOGY LABORATORY [facility] - Department of Dermatology [address], [address] [phone] documented in this encounter Visit Diagnoses Not on filedocumented in this encounter Care Teams Stock Replenisher Relationship Specialty Start Date End Date Breonna Alejandra MD [address] [place] [address] PCP - General Family Medicine 09/02/16 documented as of this encounter
--- OUTSIDE RECORDS SUMMARY | 2024-12-18 08:02 | XMS_ITS | Clinical Summary ---
Author Organization [facility] Address [address] [place] [address] Care Team Providers Care Skiver Counter Name Role Phone Breonna Alejandra MD Primary Care Provider + Source Comments [facility],non-owned Affiliates and Associated Physician Practices is amultiple site organization consisting of ambulatory clinics and hospital sitesin [place], [place], [place] and [place]. This disclosure is being madepursuant to the Care Everywhere program and may not contain all information available regarding this patient. Last updated 18.[facility] Allergies Active Allergy Reactions Criticality Noted Date Comments Amoxicillin GI Discomfort Low 09/02/2016 Medications * Be aware that medications may not be up to date on this document. Alwaysverify current medications with the patient. Medication Sig Dispensed Refills Start Date End Date Status lisinopril (PRINIVIL; ZESTRIL) 20 MG tablet Take 20 mg by mouth once daily Active OMEPRAZOLE PO Active Mometasone Furoate (NASONEX NA) Active Encounters Date Type Department Care Team Description 10/15/2024 Lab Requisition [facility] - DermPath Lab [address], [place] [id number] Marleen Mcgovern DO from Last 3 Months Social History Tobacco Use Types Packs/Day Years Used Date Smoking Tobacco: Former Sex and Gender Information Value Date Recorded Sex Assigned at Not on file Gender Identity Not on file Sexual Orientation Not on file Last Filed Vital Signs Vital Sign Reading Time Taken Comments Blood Pressure 124/68 04/24/2019 11:45 AM CDT Pulse 94 04/24/2019 11:45 AM CDT Temperature 37.2 C (98.9 F) 04/24/2019 11:45 AM CDT Respiratory Rate 18 04/24/2019 11:45 AM CDT Oxygen Saturation 96% 04/24/2019 11:45 AM CDT Inhaled Oxygen Concentration - - Weight 83 kg (183 lb) 04/24/2019 11:45 AM CDT Height 162.6 cm (5' 4 ) 04/24/2019 11:45 AM CDT Body Mass Index 31.41 04/24/2019 11:45 AM CDT Plan of Treatment Health Maintenance Due Date Last Done Comments BONE DENSITY TESTING 1944 DTAP/TDAP/TD VACCINES (1 - Tdap) 1963 PNEUMOCOCCAL VACCINE 50+ (1 of 1 - PCV) 1994 ZOSTER VACCINE (1 of 2) 1994 Respiratory Syncytial Virus (RSV) Vaccine Pt: or over 60 yrs (1 - 1-dose 75+ series) 2019 COVID-19 VACCINE (2023-2 5 season) 2024 INFLUENZA VACCINE (#1) 2024 DEPRESSION SCREENING 09/18/2024 MEDICARE AWV CALENDAR YEAR 2024 HEPATITIS B VACCINE Aged Out No longe r eligible based on patient's age to complete this topic HIB VACCINE Aged Out No longer eligi ble based on patient's age to complete this topic HPV VACCINE Aged Out No longer eligi ble based on patient's age to complete this topic MENINGOCOCCAL (Group B) VACC INE SHARED DECISION-MAKING Aged Out No longer eligibl e based on patient's age to complete this topic MENINGOCOCCAL GROUPS A/C/Y/W VACCINE Aged Out No longer eligible b ased on patient's age to complete this topic Procedures Procedure Name Priority Date/Time Associated Diagnosis Comments DERMATOPATHOLOGY Routine 10/15/2024 10:3 8 AM POT TENDER from Last 3 Months Results * DERMATOPATHOLOGY (10/15/2024 10:38 AM POT TENDER) Case Report Dermatopathology Report Case: [id number] Authorizing Provider: Marleen Mcgovern DO Collected: 10/15/2024 10:38 AM Ordering Location: [facility] - Received: 10/15/2024 02:47 PM DermPath Lab Pathologist: Ant Licea MD Specimen: Skin, right thigh 12:13 PM [facility] DERMATOPATHOLOGY LABORATORY Final Diagnosis Specimen A. SKIN, right thigh: HYPERPLASTIC (HYPERTROPHIC) ACTINIC KERATOSIS (L57.0) 12:13 PM [facility] DERMATOPATHOLOGY LABORATORY Clinical History R/O NMSC 12:13 PM [facility] DERMATOPATHOLOGY LABORATORY Gross Description Specimen A: Received is one formalin filled container labeled with the patient's name and designated right thigh. The specimen consists of a shave biopsy measuring 7x5x1 mm. Jar 0. 12:13 PM [facility] DERMATOPATHOLOGY LABORATORY Microscopic Description Specimen A. SKIN, right thigh: There is hyperkeratosis alternating with parakeratosis. There is epidermal hyperplasia with disorderly maturation of keratinocytes with nuclear pleomorphism confined to the lower half of the epidermis. 12:13 PM [facility] DERMATOPATHOLOGY LABORATORY Disclaimer An external and internal positive and negative controls are appropriate for the histochemical, immunohistochemical and immunofluorescence stain(s) in this case (if any), except where stated explicitly. The performance characteristics of the stain(s) cited in this report were developed and its performance characteristic determined by the Dermatopathology Laboratory at [facility], directed by Dr. Kentrell Licea. These tests need not be, and therefore are not, approved by the [place] Food and Drug Administration. The tests are used for clinical purposes. Billing Codes Specimen Charges Stain Charges 46120 1 12:13 PM [facility] DERMATOPATHOLOGY LABORATORY Embedded Images 12:13 PM [facility] DERMATOPATHOLOGY LABORATORY Pathology/Cytolo gy TISSUE SPECIMEN FROM SKIN / Unknown 10/15/2024 10:38 AM POT TENDER 10/15/2024 2:47 PM POT TENDER Marleen Mcgovern DO LAB - PATHOLOGY/C YTOLOGY ORDERABLES DERMATOPATHOLOGY LABORATORY [facility] - Department of Dermatology [address] [phone] from Last 3 Months Care Teams Skiver Counter Relationship Specialty Start Date End Date Breonna Alejandra MD [address] [place] [address] PCP - General Family Medicine 09/02/16
== END 2024-12-18 07:54 | disposition home or self-care (01) ==
LOC: ANHIMG 07:57
PROVIDERS: PCP Family Medicine; Visit Provider Family Medicine
DX: Z12.31 Encounter for screening mammogram for malignant neoplasm of breast (principal)
CPT/HCPCS: 77063; 77067